=== PATIENT | male | born 1950 | race Caucasian/White ===

== ENCOUNTER 2019-08-09 10:25 | Outpatient (CLI) | payer BC ==
[~2019-08-09] VITALS: Ht 185.5 cm; Wt 104.5 kg
[2019-08-09] MEDS ORDERED: OMEG1CAP58 PO (10:58)
[2019-08-09] MEDS ORDERED: METO50TA15 PO (10:58)
[2019-08-09] MEDS ORDERED: LISI-552 PO (10:58)
[2019-08-09] MEDS ORDERED: CYAN100088 PO (10:58)
[2019-08-09] MEDS ORDERED: WARF4TAB PO (10:58)
[2019-08-09] MEDS ORDERED: ROSU10TA22 PO (10:58)
[2019-08-09] MEDS ORDERED: MULT-1104 PO (10:58)
[2019-08-09] MEDS ORDERED: UBID100C17 PO (10:58)
[2019-08-09] MEDS ORDERED: WARF1TAB PO (10:58)
[2019-08-09] MEDS ORDERED: METO-333 PO (11:04)
== END 2019-08-09 11:08 | disposition home or self-care (01) ==
LOC: PREOP 10:25
PROVIDERS: ATTEND Surgery
DX: Z01.818 Encounter for other preprocedural examination (principal)

== ENCOUNTER 2019-08-15 09:51 | Day surgery (SDC) | payer MEDICARE ==
--- NOTE | 2019-08-10 13:21 | HISTORY AND PHYSICAL ---
DATE OF SERVICE: ATTENDING PHYSICIAN: Dr. Davis. DATE OF SURGERY: 08/15/2019. HISTORY OF PRESENT ILLNESS: The patient is a 69-year-old male, who was referred over to us in need of an EGD and a colonoscopy. The patient reports that he did have an esophageal cancer that was identified seven years ago and underwent oral and IV chemo treatment as well as radiation. He reports that since that time, he has done well, but has not had an EGD since then. He does get occasional episodes of reflux, but denies any nausea or vomiting. He denies any abdominal pain. He also reports his last colonoscopy was seven years ago, which was normal. Denies any family history of colon cancer as well as no blood in the stool. He denies any diarrhea, constipation or any abdominal pain. He reports that it was recommended by his oncologist to proceed with followup endoscopies. PAST MEDICAL HISTORY: Hypertension, gastroesophageal reflux disease, hypercholesterolemia, prostate cancer, esophageal cancer in 2011. PAST SURGICAL HISTORY: Appendectomy in 1953, abdominal hernia repair in 2011, hiatal hernia repair around 1999, mitral valve repair around 1999, mitral valve replacement with artificial valve around 2004, right Achilles tendon repair. ALLERGIES: PENICILLIN. MEDICATIONS: 1. Metoprolol 50 mg 2 tablets daily. 2. [place] 3 daily. 3. Multivitamin daily. 4. CoQ10 100 mg daily. 5. Vitamin B12 2500 mcg daily. 6. Coumadin 4 mg five days a week, 3.5 mg 2 days a week. 7. Crestor 10 mg daily. 8. Nexium 40 mg daily. SOCIAL HISTORY: A previous smoker, half pack per day for 10 years, quit in 1984. Social for alcohol. FAMILY HISTORY: Father with lung cancer at 66 years of age. REVIEW OF SYSTEMS: Well-nourished male in no acute distress. He is not experiencing any shortness of breath or difficulty breathing. No chest pain, palpitations or diaphoresis. No nausea, vomiting or abdominal pain. He does report occasional episodes of reflux. No diarrhea or constipation. No red blood per rectum. No dark tarry stools. No fever or chills. No recent inadvertent weight loss. All other review of systems are negative. PHYSICAL EXAMINATION: VITAL SIGNS: Stable. Current weight is 235.7 and 6 feet 1 inch. CHEST: Clear breath sounds bilaterally. HEART: Regular, no murmurs. EXTREMITIES: No lower extremity edema. Negative Homans sign. HEENT: No scleral icterus. No cervical lymphadenopathy. ABDOMEN: Soft, nontender, nondistended. No palpable masses. No organomegaly. SKIN: Warm, dry and pink. NEUROLOGIC: Awake, alert, oriented x3. ASSESSMENT AND PLAN: A 69-year-old male with a history of esophageal cancer, who also has reflux and is in need of a screening colonoscopy. At this time, we will recommend proceeding with an EGD and a screening colonoscopy. The risks and benefits of the procedure as well as the procedure and home care instructions were explained to the patient. The patient verbalized understanding of instructions and agrees to this plan. At this time, we will proceed with obtaining cardiac clearance to stop his current anticoagulation and get their recommendations if he should be bridged on some form of Lovenox. Once we have obtained using the clearance, we will schedule him for the EGD and screening colonoscopy. Job ID: [id number] DocumentID: [id number] Dictated Date: 08/10/2019 12:55:27 Coal Digger Date: 08/10/2019 13:20:55 Dictated By: ALYSON ALVAREZ APRN
[2019-08-15] VITALS (16 sets, daily range): BP systolic 148–181; BP diastolic 85–99
[~2019-08-15 09:51] MED LIST: CYAN100088 PO; LISI-552 PO; METO-333 PO; METO50TA15 PO; MULT-1104 PO; OMEG1CAP58 PO; ROSU10TA22 PO; UBID100C17 PO; WARF1TAB PO; WARF4TAB PO
--- NOTE | 2019-08-15 10:19 | Conscious Sedation/ASA ---
Conscious Sedation Pre-Proced Time 10:00 ASA Score 2 For ASA 3 and 4: Consider anesthesia and medical clearance. Also, for patients with a history of failed moderate sedation consider anesthesia. Airway Lungs Heart ASA score ASA 1: a normal healthy patient ASA 2: a patient with a mild systemic disease (mid diabetes, controlled hypertension, obesity ASA 3: a patient with a severe systemic disease that limits activity (angina, COPD, prior Myocardial infarction) ASA 4: a patient with an incapacitating disease that is a constant threat to life (CHF, renal failure) ASA 5: a moribund patient not expected to survive 24 hrs. (ruptured aneurysm) ASA 6: a declared brain- patient whose organs are being harvested. For emergent operations, add the letter E after the classification Mallampati Classification Grade 2 Sedation Plan Analgesia, Amnesia, Plan communicated to team members, Discussed options with patient/fam, Discussed risks with patient/fam The patient is an appropriate candidate to undergo the planned procedure, sedation, and anesthesia. The patient immediately re-assessed prior to indication. TUSHAR HALL MD Aug 15, 2019 10:19
--- NOTE | 2019-08-15 10:20 | Progress Note-Pre Operative ---
Pre-Operative Progress Note H&P Reviewed The H&P was reviewed, patient examined and no changes noted. Date Seen by Provider: Aug 15, 2019 Time Seen by Provider: 10:00 Date H&P Reviewed: Aug 15, 2019 Time H&P Reviewed: 10:00 Pre-Operative Diagnosis: hx esphageal ca, screening o TUSHAR HALL MD Aug 15, 2019 10:20
--- NOTE | 2019-08-15 10:21 | Discharge Inst-Surgical ---
D/C Lap Instructions-ISABEL Follow Up Activity as tolerated High Fiber Diet 25g or more per day Avoid Alcohol, Caffeine, Spicy [place]ett and Acid foods. Drink 64 fluid oz or more of fluids per day. Symptoms to Report: Fever over 101 degree F, Nausea/Vomiting If any problems/questions: Contact your physician or go to Emergency Room TUSHAR HALL MD Aug 15, 2019 10:21
[2019-08-15] MEDS ORDERED: NS IV 500 ML 500 ML ONE (10:27)
[2019-08-15] MEDS ORDERED: ACETAMINOPHEN 325 MG TABLET PO PRN (10:30)
[2019-08-15] MEDS ORDERED: morphine INJ 10 MG/ML 1ML (SYR OR VIAL) IVP PRN ×2 (10:30)
[2019-08-15] MEDS ORDERED: ONDANSETRON 4 MG/2 ML (SDV) Z0FRAN IVP PRN (10:30)
[2019-08-15] MEDS ORDERED: NS IV 500 ML 500 ML IV PRN (10:32)
[2019-08-15] MEDS ORDERED: fentaNYL INJECTION 100 MCG/2 ML AMP IVP ONE (10:45)
[2019-08-15] MEDS ORDERED: LIDOCAINE JELLY 2% 6 ML SYRINGE MM PRN (10:45)
[2019-08-15] MEDS ORDERED: MIDAZOLAM 5 MG/5 ML (VERSED) VIAL IV PRN (10:45)
[2019-08-15] MEDS ORDERED: HURRICAINE EXT TUBE (BENZOCAINE) XX PRN (10:45)
[2019-08-15] MEDS ORDERED: MIDAZOLAM 5 MG/5 ML (VERSED) VIAL ONE ×2 (10:56)
[2019-08-15] MEDS ORDERED: LIDOCAINE JELLY 2% 6 ML SYRINGE ONE (10:56)
[2019-08-15] MEDS ORDERED: fentaNYL INJECTION 100 MCG/2 ML AMP ONE ×2 (10:57)
[2019-08-15] MEDS ORDERED: HURRICAINE EXT TUBE (BENZOCAINE) ONE (10:57)
--- NOTE | 2019-08-15 11:55 | Progress Note-Post Operative ---
Post-Operative Progess Note Surgeon (s)/Estate Tax Examiner (s) Surgeon TUSHAR HALL MD Estate Tax Examiner: none Pre-Operative Diagnosis hx esphageal ca, screening colo Post-Operative Diagnosis no recurrrent esophageal mass, normal GE jx, moderate gastritis gastric conduit and pouch, slight delayed gastric emptying, normal duodenum. mild chronic stage 1 ext and hemorrhoids, moderate sigmoid diverticulosis. Procedure & Operative Findings Date of Procedure 08/15/19 Procedure Performed/Findings EGD with bx. Colonoscopy. Anesthesia Type cs Estimated Blood Loss Estimated blood loss (mL): minimal Specimens/Packing Specimens Removed ge jxn, antrum TUSHAR HALL MD Aug 15, 2019 11:55
--- NOTE | 2019-08-15 20:30 | OPERATIVE REPORT ---
DATE OF SERVICE: 08/15/2019 ATTENDING PRIMARY CARE PHYSICIAN: Carola Davis MD PREOPERATIVE DIAGNOSES: History of esophageal cancer, screening colonoscopy. POSTOPERATIVE DIAGNOSES: The gastroesophageal anastomosis appeared to be intact. There was a moderate severity gastritis through the stomach. No formal ulcerations, polyps nor any neoplasms. No recurrent tumors. Pylorus and duodenum appeared normal with no distal obstructions. Mild chronic stage I external and internal hemorrhoids, moderate sigmoid diverticulosis. PROCEDURE: EGD with biopsy, colonoscopy. SURGEON: Tushar Hall MD ANESTHESIA: Conscious sedation. ESTIMATED BLOOD LOSS: Minimal. FINDINGS: Same as postoperative. DISPOSITION: The patient tolerated the procedure well. INDICATIONS: The patient is a 69-year-old male referred over to us for an EGD and colonoscopy. This gentleman was diagnosed with what sounds to be a stage I localized esophageal cancer in 2011 and underwent neoadjuvant chemoradiation, was sensitive 5-fluorouracil and cisplatin and radiation followed by transhiatal esophagectomy with anastomosis in the left neck. He states that he is otherwise doing well and tolerating a regular diet. He states that he does have occasional episodes of reflux, which for the most part is under control with Nexium. He states that he does not report any major issues of diarrhea nor constipation as well as no red blood per rectum nor any dark tarry stools. His last colonoscopy was approximately 10 years ago. DESCRIPTION OF PROCEDURE: The patient was brought to the endoscopy suite, laid in the left lateral decubitus position. After adequate IV pain and sedative medications and conscious sedation anesthesia, the mouthpiece was applied. The endoscope was placed in the mouth, visualizing the pharynx and hypopharyngeal region. Vocal cords, epiglottis and vallecula identified and appeared to be normal. The endoscope was then gently intubated into the esophageal opening and esophagus insufflated. The gastroesophageal anastomosis in the upper third of the mediastinum was identified and appeared to be normal with no recurrent tumors. This was biopsied with forceps with visualization of good hemostasis. The endoscope was then advanced through the gastric conduit with a moderate gastritis noted. Once we reached the antrum, it appears the antrum has stretch in size over time. The endoscope was retroflexed with no significantly large hiatal hernia identified. Again, this moderate gastritis continued on throughout the antrum. Biopsy was taken of the antrum to rule out H. pylori. The pylorus and duodenum were widely patent and no ulcerations identified. The endoscope was then slowly withdrawn while taking a second look and suctioning of residual air with no additional findings. Under the same anesthesia, we then proceeded with colonoscopy portion of the procedure. Digital rectal examination was performed, which revealed mild chronic stage I external and internal hemorrhoids, not actively edematous nor inflamed and no bleeding. Normal sphincter tone was felt and there were no palpable masses. Prostate gland was palpable and appeared normal. The endoscope was then intubated to the anus and rectum gently insufflated. The endoscope was then advanced to the valves of [place] and rectum with no polyps or any neoplasms identified. Through the sigmoid colon, a moderate sigmoid diverticulosis identified. There were no mucosal inflammatory changes to indicate any active diverticulitis. The endoscope was then advanced to the remainder of the descending, transverse and ascending colon to the cecum. These segments were normal. There were no polyps nor any neoplasms identified throughout the colon or rectum. Endoscope was then slowly withdrawn while taking a second look and suctioning of residual air with no additional findings. The patient tolerated the procedure well. We will recommend medical management with a high fiber diet with at least 30 grams of fiber daily as well as significant amounts of water to promote soft stools on a daily basis and prevent further propagation of diverticulosis and prevent complications of diverticulitis. It appears that he does not have any recurrent tumors and he does have some gastritis identified throughout the gastric conduit and gastric pouch; however, he appears to have this under control with medications. We will recommend the necessary lifestyle and diet accommodation including small and more frequent meals, avoidance of eating at night as well as head elevation while lying supine. He also needs to avoid caffeinated beverages, spicy, greasy and acidic foods and continue with Nexium daily. Job ID: [id number] DocumentID: [id number] Dictated Date: 08/15/2019 11:40:09 Paper Core Machine Operator Date: 08/15/2019 20:30:38 Dictated By: TUSHAR HALL MD
== END 2019-08-15 12:35 | disposition home or self-care (01) ==
LOC: ENDO 09:51
PROVIDERS: ATTEND Surgery
DX: Z12.11 Encounter for screening for malignant neoplasm of colon (principal); K29.70 Gastritis, unspecified, without bleeding; K31.89 Other diseases of stomach and duodenum; K64.0 First degree hemorrhoids; K64.8 Other hemorrhoids; K57.30 Diverticulosis of large intestine without perforation or abscess without bleeding; I10 Essential (primary) hypertension; Z85.01 Personal history of malignant neoplasm of esophagus; Z95.0 Presence of cardiac pacemaker; Z79.899 Other long term (current) drug therapy; Z90.89 Acquired absence of other organs; K21.9 Gastro-esophageal reflux disease without esophagitis; E78.00 Pure hypercholesterolemia, unspecified; Z85.46 Personal history of malignant neoplasm of prostate; Z80.1 Family history of malignant neoplasm of trachea, bronchus and lung
CPT/HCPCS: 43239; G0105